=== PATIENT | female | born 1955 | race Caucasian/White ===

== ENCOUNTER → 2021-05-15 | Outpatient (CLI) | payer OTHER ==
[~2021-05-15] MED LIST: CLARITIN10 MG PO; CYMBALTA60 MG PO; FENOGLIDE40 MG PO; HEARTBURN RELIE75 M1 PO; LIPITOR 10 MG10 M1 PO; LISINOPRIL10 MG PO; XANAX 0.25 MG0.25 MG PO
== END ==
LOC: SJCVCIMAG 10:33
PROVIDERS: ATTEND Internal Medicine
DX: I08.1 Rheumatic disorders of both mitral and tricuspid valves (principal); R00.0 Tachycardia, unspecified; R00.2 Palpitations